=== PATIENT | male | born 1975 | race Caucasian/White ===

== ENCOUNTER → 2018-10-08 | Day surgery (SDC) | payer MEDICARE, OTHER ==
--- NOTE | 2018-10-08 15:55 | RADIOLOGY REPORT (SQ) ---
EXAM DESCRIPTION: CT LEFT LOWER EXTREMITY WITH COMPLETED DATE/TIME: 10/08/2018 3:28 pm REASON FOR STUDY: M25.562 PAIN IN LEFT KNEE M25.562 PAIN IN LEFT KNEE COMPARISON: None. TECHNIQUE: Post arthrographic imaging performed through the LEFT knee with reformatted coronal and s agittal imaging windowed for bone and soft tissues. All CT scanners at this facility use dose modulation, iterative reconstruction, and/or weight based d osing when appropriate to reduce radiation dose to as low as reasonably achievable (ALARA). [facility]: Dose Right [facility]: CareDose [facility]: Dose Right [facility]: Teradose 4D [facility]: Cinexio RADIATION DOSE: CT Rad equipment meets quality standard of care and radiation dose reduction techniq ues were employed. CTDIvol: 4.6 mGy. DLP: 142 mGy-cm. mGy. LIMITATIONS: Patient has a medial hemiarthroplasty, which causes some streak artifact FINDINGS: SOFT TISSUES: No masses or adenopathy BONES: Normal bone density. No lytic or blastic lesions. No lucency between the medial hemiarthropl [place] and [place] bone worrisome for prosthesis loosening JOINT DISTENTION: Adequate. No intra-articular loose bodies CHONDRAL SURFACES: Medial hemiarthroplasty. 03/13/2013 minimal chondromalacia lateral patellar facet axial image 44/105. Mild lateral compartment chondromalacia MENISCI: Medial hemiarthroplasty. Lateral meniscus intact. OTHER: Anterior and posterior cruciate ligaments are normal size IMPRESSION: Medial hemiarthroplasty. No lucency around the hardware worrisome for loosening. No CT arthrogram evidence of lateral meniscal tear or full-thickness ACL/PCL tear TECHNICAL DOCUMENTATION: JOB ID: [id number] Quality ID # [id number]: Final reports with documentation of one or more dose reduction techniques (e.g., Au tomated exposure control, adjustment of the mA and/or kV according to patient size, use of iterative reconstruction technique) 2010 [employer]- All Rights Reserved Reading location - IP/workstation name: [email or web address]
--- NOTE | 2018-10-08 16:24 | RADIOLOGY REPORT (SQ) ---
EXAM DESCRIPTION: ARTHRO KNEE INJECTION; FLUORO/NEEDLE PLACEMENT COMPLETED DATE/TIME: 10/08/2018 3:49 pm REASON FOR STUDY: M25.562 PAIN IN LEFT KNEE M25.562 PAIN IN LEFT KNEE COMPARISON: None. FLUOROSCOPY TIME: 11 seconds 2 digital radiographic images saved to PACS. LIMITATIONS: None. PROCEDURE: Procedure, risks, benefits and alternatives explained to patient who then gave written co nsent. The left knee was marked and a time-out was called for correct marking verification. Entry s ite marked using fluoroscopic guidance. Knee prepped and draped using sterile technique. Local anes thesia achieved using 5 mL of 1% lidocaine injection. 25 gauge needle introduced into the joint spac e under direct fluoroscopic visualization. Non-ionic contrast instilled to confirm intra-articular p osition. Additional dilute non-ionic contrast instilled. Needle removed and entry site covered with sterile bandage. No immediate complications noted. TECHNIQUE: Digital images acquired during fluoroscopy and stored on PACS. Patient immediately take n to the CT suite for additional imaging. INJECTION LOCATION: Left patellofemoral joint CONTRAST TYPE AND AMOUNT: 1 mL of Omnipaque 300 was injected to confirm intra-articular needle placem ent followed by 30 mL of dilute Omnipaque/ saline for CT arthrogram IMPRESSION: SUCCESSFUL NEEDLE PLACEMENT AND INJECTION FOR LEFT KNEE CT ARTHROGRAM. COMMENT: Quality ID 145: Final reports for procedures using fluoroscopy that document radiation exp osure indices, or exposure time and number of fluorographic images (if radiation exposure indices are not available) TECHNICAL DOCUMENTATION: JOB ID: [id number] [employer]- All Rights Reserved Reading location - IP/workstation name: [facility]
--- NOTE | 2018-10-08 16:24 | RADIOLOGY REPORT (SQ) ---
EXAM DESCRIPTION: ARTHRO KNEE INJECTION; FLUORO/NEEDLE PLACEMENT COMPLETED DATE/TIME: 10/08/2018 3:49 pm REASON FOR STUDY: M25.562 PAIN IN LEFT KNEE M25.562 PAIN IN LEFT KNEE COMPARISON: None. FLUOROSCOPY TIME: 11 seconds 2 digital radiographic images saved to PACS. LIMITATIONS: None. PROCEDURE: Procedure, risks, benefits and alternatives explained to patient who then gave written co nsent. The left knee was marked and a time-out was called for correct marking verification. Entry s ite marked using fluoroscopic guidance. Knee prepped and draped using sterile technique. Local anes thesia achieved using 5 mL of 1% lidocaine injection. 25 gauge needle introduced into the joint spac e under direct fluoroscopic visualization. Non-ionic contrast instilled to confirm intra-articular p osition. Additional dilute non-ionic contrast instilled. Needle removed and entry site covered with sterile bandage. No immediate complications noted. TECHNIQUE: Digital images acquired during fluoroscopy and stored on PACS. Patient immediately take n to the CT suite for additional imaging. INJECTION LOCATION: Left patellofemoral joint CONTRAST TYPE AND AMOUNT: 1 mL of Omnipaque 300 was injected to confirm intra-articular needle placem ent followed by 30 mL of dilute Omnipaque/ saline for CT arthrogram IMPRESSION: SUCCESSFUL NEEDLE PLACEMENT AND INJECTION FOR LEFT KNEE CT ARTHROGRAM. COMMENT: Quality ID 145: Final reports for procedures using fluoroscopy that document radiation exp osure indices, or exposure time and number of fluorographic images (if radiation exposure indices are not available) TECHNICAL DOCUMENTATION: JOB ID: [id number] [employer]- All Rights Reserved Reading location - IP/workstation name: [facility]
== END ==
LOC: RAD 14:40
PROVIDERS: ATTEND Orthopaedic Surgery
DX: M25.562 Pain in left knee (principal)
CPT/HCPCS: 27370; 77002

== ENCOUNTER → 2020-01-04 | Outpatient (CLI) | payer MEDICARE, OTHER ==
[~2020-01-04] MED LIST: DIAZEPAM 5 MG TABLET ONE
--- NOTE | 2020-01-04 14:18 | RADIOLOGY REPORT (SQ) ---
EXAM DESCRIPTION: CERV SP 4 OR 5 VIEWS COMPLETED DATE/TIME: 01/04/2020 1:15 pm REASON FOR STUDY: M50.30 RADICULOPATHY, CERVICAL REGION M54.16 RADICULOPATHY, LUMBAR REGION COMPARISON: None. NUMBER OF VIEWS: Five views. TECHNIQUE: AP, lateral, obliques and odontoid radiographic images acquired of the cervical spine. LIMITATIONS: None. FINDINGS: MINERALIZATION: Normal. ALIGNMENT: Anatomic. VERTEBRAE: Vertebral bodies of normal height. DISCS: No significant osteophytes or sclerosis. Disc height maintained. FORAMINA: No osteophytes or foraminal narrowing. LATERAL AND POSTERIOR ELEMENTS: Facets, lateral masses and spinous processes without significant find ings. HARDWARE: None in the spine. SOFT TISSUES: No masses or calcifications. Lung apices clear. OTHER: No other significant finding. IMPRESSION: NO SIGNIFICANT RADIOGRAPHIC FINDING IN THE CERVICAL SPINE. TECHNICAL DOCUMENTATION: JOB ID: [id number] 2010 [employer]- All Rights Reserved Reading location - IP/workstation name: [email or web address]
--- NOTE | 2020-01-04 16:32 | RADIOLOGY REPORT (SQ) ---
EXAM DESCRIPTION: MRI LUMBAR SPINE WITHOUT COMPLETED DATE/TIME: 01/04/2020 3:01 pm REASON FOR STUDY: M47.9 SPONDYLOSIS, UNSPECIFIED M54.16 RADICULOPATHY, LUMBAR REGION COMPARISON: None. TECHNIQUE: Sagittal and Axial imaging includes T1, T2, STIR and gradient echo sequences. Coronal T2/ HASTE imaging. LIMITATIONS: None. FINDINGS: VISUALIZED UPPER ABDOMEN: Limited evaluation. No acute or suspicious findings suggested. SEGMENTATION: No transitional anatomy. The lowest well-developed disc space is labeled L5-S1. ALIGNMENT: Anatomic. VERTEBRAE: Intact. BONE MARROW: Normal. No marrow replacement or reactive changes. DISC SIGNAL: Normal. No significant abnormal signal or loss of height. POSTERIOR ELEMENTS: Generally intact. No pars defect evident. HARDWARE: None in the spine. CORD AND CONUS: Normal in size and signal intensity. Conus at the L1-2 level. SOFT TISSUES: No aortic aneurysm seen. No bulky retroperitoneal adenopathy or mass. No paraspinal mas s or fluid. L1-L2: No significant spinal stenosis or exit foraminal stenosis. L2-L3: No significant spinal stenosis or exit foraminal stenosis. L3-L4: No significant spinal stenosis or exit foraminal stenosis. L4-L5: No significant spinal stenosis or exit foraminal stenosis. L5-S1: No significant spinal stenosis or exit foraminal stenosis. LOWER THORACIC: Incompletely imaged. No stenosis seen. SACRUM: Visualized upper sacrum intact. OTHER: No other significant findings. IMPRESSION: NORMAL MRI LUMBAR SPINE. TECHNICAL DOCUMENTATION: JOB ID: [id number] 2010 [employer]- All Rights Reserved Reading location - IP/workstation name: [email or web address]
== END ==
LOC: RAD 12:37
PROVIDERS: ATTEND Physician Assistant
DX: M54.16 Radiculopathy, lumbar region (principal); M47.9 Spondylosis, unspecified; M50.30 Other cervical disc degeneration, unspecified cervical region
CPT/HCPCS: 72148; 72050; A9270